=== PATIENT | female | born 1980 | race Caucasian/White ===

== ENCOUNTER 2021-03-19 09:30 | Observation (INO) ==
[2021-03-19 10:47] LABS: Basophils % 0.4 %; Hematocrit 33.8 % (35.3-44.9); Hemoglobin 10.4 g/dL (11.5-15.4); Immature Granulocytes % 0.5 % (0-4); Lymphocytes # 0.7 K/mcL (0.6-4.6); Lymphocytes % 9.8 %; Mean Corpuscular HGB Conc 30.8 g/dL (31.6-35.5); Mean Corpuscular Hemoglobin 26.4 pg (28.0-33.3); Mean Corpuscular Volume 85.8 fL (83.0-100.0); Monocytes # 0.2 K/mcL (0.0-1.3); Monocytes % 3.3 %; Neutrophils # 6.3 K/mcL (1.6-8.9); Platelet Count 259 K/mcL (140-400); Red Blood Count 3.94 M/mcL (3.82-4.97); Red Cell Distribution Width 14.3 % (11.5-14.5); White Blood Count 7.4 K/mcL (4.3-11.1)
[2021-03-19 11:27] LABS: Estimated Average Glucose 111 mg/dl; Hemoglobin A1C 5.5 %
[2021-03-19 12:00] LABS: Acetaminophen < 10 mcg/mL (10-20); Alanine Aminotransferase 19 Units/L (7-52); Albumin/Globulin Ratio 1.8 (1.1-2.2); Alkaline Phosphatase 39 Units/L (34-104); Aspartate Amino Transferase 35 Units/L (13-39); BUN/Creatinine Ratio 14 (6-26); Bilirubin,Indirect 0.3 mg/dL (0.0-1.0); Bilirubin,Total 0.3 mg/dL (0.3-1.0); Blood Urea Nitrogen 13 mg/dL (6-20); Calcium 8.4 mg/dL (8.6-10.3); Carbon Dioxide 26 mEq/L (23-29); Chloride 110 mEq/L (98-107); Chol/HDL Ratio 2.6 (0-4.9); Cholesterol 179 mg/dL (< 200); Ethanol < 10 mg/dL (Less than 10); Globulin 2.2 g/dL (2.4-3.5); Glucose 139 mg/dL (70-105); HDL Cholesterol 69 mg/dL (40-59); LDL Cholesterol,Calculated 95 mg/dL (< 100); Magnesium 2.1 mg/dL (1.6-2.6); Osmolality,Calculated 292 (280-300); Phosphorous 2.4 mg/dL (2.7-4.5); Potassium 3.9 mEq/L (3.5-5.1); Salicylate < 2.5 mg/dL (15.0-30.0); Sodium 140 mEq/L (136-145); Thyroid Stimulating Hormone 3.214 mcIU/mL (0.340-5.600); Total Protein 6.2 g/dL (6.4-8.9); Triglycerides 76 mg/dL (< 150); eGFR For African Americans > 60 (> 60); eGFR For Non-African Americans > 60 (> 60)
[2021-03-19 12:20] LABS: Bilirubin,Urine Negative (Negative); Blood,Urine Negative (Negative); Clarity,Urine Clear (Clear); Color,Urine Colorless (Yellow); Glucose,Urine (UA) Normal (Normal); Ketones,Urine Negative (Negative); Leukocyte Esterase,Urine Negative (Negative); Nitrite,Urine Negative (Negative); Protein,Urine Negative (Neg-Trace); Specific Gravity,Urine 1.008 (1.010-1.025); Urobilinogen,Urine Normal (Normal)
[2021-03-19 12:30] LABS: Amphetamine Screen,Urine Negative ng/mL (Cutoff=1000); Barbiturate Screen,Urine Negative ng/mL (Cutoff=200); Benzodiazepines Screen,Urine Negative ng/mL (Cutoff=200); Cannabinoid Screen,Urine Negative ng/mL (Cutoff = 50); Cocaine Screen,Urine Negative ng/mL (Cutoff= 300); Opiate Screen,Urine Negative ng/mL (Cutoff=300); Phencyclidine Screen,Urine Negative ng/mL (Cutoff=25)
[2021-03-19] MEDS ORDERED: Naloxone 0.4 MG/ML INJ IVP PRN (12:44)
[2021-03-19] MEDS ORDERED: *HR* LORazepam 2 MG/ML VIAL IVP PRN (17:48)
[2021-03-20 02:21] LABS: BUN/Creatinine Ratio 13 (6-26); Blood Urea Nitrogen 12 mg/dL (6-20); Calcium 8.7 mg/dL (8.6-10.3); Carbon Dioxide 25 mEq/L (23-29); Chloride 111 mEq/L (98-107); Glucose 88 mg/dL (70-105); Magnesium 2.3 mg/dL (1.6-2.6); Osmolality,Calculated 293 (280-300); Phosphorous 3.4 mg/dL (2.7-4.5); Potassium 3.9 mEq/L (3.5-5.1); Sodium 142 mEq/L (136-145); eGFR For African Americans > 60 (> 60); eGFR For Non-African Americans > 60 (> 60)
[2021-03-20 14:14] LABS: Adenovirus Not Detected (Not Detect); Bordetella Pertussis Not Detected (Not Detect); Chlamydophila pneumoniae Not Detected (Not Detect); Coronavirus 229E Not Detected (Not Detect); Coronavirus HKU1 Not Detected (Not Detect); Coronavirus NL63 Not Detected (Not Detect); Coronavirus OC43 Not Detected (Not Detect); Human Metapneumovirus Not Detected (Not Detect); Human Rhinovirus/Enterovirus Not Detected (Not Detect); Influenza A Subtype 2009 H1 Not Detected (Not Detect); Influenza B Not Detected (Not Detect); Mycoplasma pneumoniae Not Detected (Not Detect); Parainfluenza Virus 1 Not Detected (Not Detect); Parainfluenza Virus 2 Not Detected (Not Detect); Parainfluenza Virus 3 Not Detected (Not Detect); Parainfluenza Virus 4 Not Detected (Not Detect); Respiratory Syncytial Virus Not Detected (Not Detect); SARS-CoV-2 Not Detected (Not Detect)
[2021-03-20 17:05] VITALS: BP 124/74
== END 2021-03-20 18:00 ==
LOC: 3ANU 09:30 → EMEROOARM 09:30 → SUATTDRO 13:59 → 3ANU 14:34
PROVIDERS: ADMIT Student in an Organized Health Care Education/Training Program; ATTEND Family Medicine

== ENCOUNTER 2021-03-20 17:56 | Inpatient (IN) ==
[2021-03-20] MEDS ORDERED: *HR* LORazepam 1 MG TABLET PO PRN (18:09)
[2021-03-20] MEDS ORDERED: Haloperidol Lactate 5 MG/ML VIAL IM PRN (18:09)
[2021-03-20] MEDS ORDERED: Acetaminophen 325 MG TABLET PO PRN (18:09)
[2021-03-20] MEDS ORDERED: *HR* LORazepam 2 MG/ML VIAL IM PRN (18:09)
[2021-03-20] MEDS ORDERED: haloperidoL 5 MG TABLET PO PRN (18:09)
[2021-03-20] MEDS ORDERED: traZODone 50 MG TABLET PO PRN (18:09)
[2021-03-20] MEDS ORDERED: hydrOXYzine pamoate 25 MG CAPSULE PO PRN (18:09)
[2021-03-21] MEDS: lamoTRIgine 100 MG TABLET PO SCH (20:32)
[2021-03-21] MEDS: clonazePAM 1 MG TABLET PO SCH (20:32)
[2021-03-22] MEDS: clonazePAM 1 MG TABLET PO SCH ×2 (09:12→21:42)
[2021-03-22] MEDS: lamoTRIgine 100 MG TABLET PO SCH (21:42)
[2021-03-23] MEDS: clonazePAM 1 MG TABLET PO SCH (08:33)
[2021-03-23 09:46] VITALS: BP 121/82
== END 2021-03-23 15:25 | disposition home or self-care (01) | DRG 918 ==
LOC: 1ANU 17:56
PROVIDERS: ADMIT Psychiatry & Neurology Forensic Psychiatry; ATTEND Psychiatry & Neurology Forensic Psychiatry